=== PATIENT | male | born 1985 | race African-American/Black ===

== ENCOUNTER 2022-03-01 09:23 | Emergency (ER) | payer SELFPAY ==
[2022-03-01 09:59] VITALS: BP 176/87; PULSE 90; RESP 17; TEMP 36.6; O2SAT 100
--- NOTE | 2022-03-01 10:59 | ED.DENTAL ---
HPI - Dental/Oral General Chief complaint: Dental/Oral Stated complaint: left upper toothache Time Seen by Provider: 03/01/22 10:50 Source: RN notes reviewed History of Present Illness HPI Narrative: Patient presents emergency room from home for dental pain. Patient states that approximately 2 days ago he broke off his left upper molar tooth he states that he had had some mild pain since then that got worse today he states the pain is aching in nature with some mild swelling of his cheek he states that he has not seen his dentist states he did take Motrin prior to arrival. He denies any fevers or chills shortness of breath or any other symptoms patient does state history of numerous dental caries Review of Systems Review of Systems: Gen.: Denies fevers or chills HEENT: See HPI Neuro: Denies headache Skin: Denies rash Endo: Denies DM PMFSH Past Medical History Medical History (Updated 03/01/22 @ 11:01 by Jerry Duff DO) Patient denies significant medical history Social History Social History (Updated 03/01/22 @ 11:00 by Jerry uDff DO) Smoking status: Never smoker Exam Narrative: APPEARANCE: No acute distress, nontoxic, resting in bed HEENT: Normocephalic, atraumatic, TMs clear bilaterally, nares patent, oral mucosa moist, airway patent, approximate tooth #12 is carious and broken down to the gumline mild erythema with no fluctuance of the gum the tooth is tender to palpation there is mild tenderness over the cheek in this area with minimal swelling there is numerous other dental caries RESPIRATORY: No respiratory distress MUSCULOSKELETAl: Moves all extremities. NEURO: Awake and alert. Following commands, speech normal, no focal deficits SKIN:: Warm, dry. Normal Color PSYCHIATRIC: Normal affect/mood Course Course Emergency Course: Patient drove himself to the emergency Discussed with patient results of workup and diagnosis. Discussed need for follow-up with primary care, proper use of medication, and reasons to return to the emergency department. Patient understands and agrees to current treatment plan Vital Signs Vital signs: Vital Signs Temperature 97.9 F 03/01/22 09:59 Pulse Rate 90 03/01/22 09:59 Respiratory Rate 17 03/01/22 09:59 Blood Pressure 176/87 H 03/01/22 09:59 Pulse Oximetry 100 03/01/22 09:59 Oxygen Delivery Room Air 03/01/22 09:59 Temperature 97.9 F 03/01/22 09:59 Pulse Rate 90 03/01/22 09:59 Respiratory Rate 17 03/01/22 09:59 Blood Pressure 176/87 H 03/01/22 09:59 Pulse Oximetry 100 03/01/22 09:59 Oxygen Delivery Room Air 03/01/22 09:59 Discharge Plan Discharge Clinical Impression: Dental abscess, Fracture of tooth Patient Disposition: Home, Self-Care Condition: Stable Instructions: Antibiotic Form, Dental Abscess (ED) Additional Instructions: Return for increasing pain increased swelling of the face fevers or any other symptoms of concern Prescriptions: New penicillin V potassium 500 mg tablet 500 mg PO Q8H 10 Days Qty: 30 0RF ibuprofen 600 mg tablet 600 mg PO TID PRN (Reason: pain) Qty: 14 0RF Follow-up/Referrals: 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
[2022-03-01] MEDS: PENICILLIN V POTASSIUM 250 MG TABLET 500 MG PO (11:30)
== END 2022-03-01 11:36 | disposition home or self-care (01) ==
LOC: ANHED 11:12
PROVIDERS: Emergency Provider Emergency Medicine
DX: K04.7 Periapical abscess without sinus (principal); K03.81 Cracked tooth
CPT/HCPCS: 99283; A9270